=== PATIENT | female | born 1985 | race Caucasian/White ===

== ENCOUNTER 2020-08-19 13:48 | Emergency (ER) | payer OTHER ==
[~2020-08-19] VITALS: Ht 149.9 cm; Wt 90.7 kg
[~2020-08-19 13:48] MED LIST: ALBU90OI6 INH; AMOX500 PO; AZIT250 PO; Amoxicillin500 MG PO; CIPR250 PO; Cleocin HCl300 MG PO; DEXT30SU PO; FLUT.05NI; GABA300 PO; GUAI120S1 PO; HYDACE5 PO; HYDR1TAB94 PO; IBUP600 PO; LEVFLO500 PO; LIDO2L MM; MEDR150I; NAPR500 PO; NAPR550 PO; Naprosyn500 MG PO; OXYACE5T PO; PENVK500 PO; PHENA200 PO; PRED20 PO; PROM25 PO; PSEU120ER PO; RXTRAM50 PO; SULTRIDS PO; TRAM50 PO
[2020-08-19 14:14] LABS: Source, Urine Clean Catch
[2020-08-19] MEDS ORDERED: CEPH500 PO (14:17)
[2020-08-19 14:19] LABS: Appearance, Urine Cloudy (Clear); Bilirubin, Urine Neg (Neg); Blood, Urine 2+ (Neg); Color, Urine Yellow (P-Yellow); Glucose Qualitative, Urine Neg (Neg); Ketones, Urine Neg (Neg); Leukocyte Esterase, Urine 2+ (Neg); Nitrite, Urine Pos (Neg); Protein, Urine 2+ (Neg); Urobilinogen, Urine NORM (Normal)
[2020-08-19 14:29] LABS: White Blood Cells, Urine 25-50 /hpf (0-5)
[2020-08-19 14:30] LABS: Bacteria Many /hpf; Squamous Epithelial Cells Mod /hpf (Few)
[2020-08-19] MEDS ORDERED: IBU600 M1 PO (14:44)
[2020-08-19] MEDS ORDERED: CYCL10 PO (14:44)
== END 2020-08-19 14:58 | disposition home or self-care (01) ==
LOC: ER 13:48
PROVIDERS: Physician Assistant
DX: N39.0 Urinary tract infection, site not specified (principal); F17.210 Nicotine dependence, cigarettes, uncomplicated; Z91.040 Latex allergy status
CPT/HCPCS: 81001; 87077; 87086; 87186; 96372; 99283-25; A9270; J1885

== ENCOUNTER → 2021-02-11 | Outpatient (CLI) | payer OTHER ==
[~2021-02-11] MED LIST changes: +CEPH500 PO; +CYCL10 PO; +IBU600 M1 PO
[2021-02-11 13:48] LABS: Hematocrit 42.1 % (33.0-51.0); Hemoglobin 13.6 g/dL (11.5-16.0); Mean Corpuscular HGB 29.4 pg (26.0-34.0); Mean Corpuscular HGB Conc 32.3 g/dL (31.5-36.5); Mean Corpuscular Volume 91 fL (80-100); Mean Platelet Volume 10.9 fL (9.1-12.4); Platelet Count 290 K/mm3 (150-400); RDW Coefficient Variation 13.7 % (11.7-14.2); RDW Standard Deviation 46.2 fL (35.1-46.3); Red Blood Cell Count 4.62 M/mm3 (3.80-5.20); White Blood Cell Count 10.51 K/mm3 (4.00-11.30)
[2021-02-11 14:07] LABS: Alanine Aminotransfer (ALT/SGP 28 U/L (12-78); Albumin, Blood 3.5 g/dL (3.4-5.0); Alk Phos 75 U/L (50-136); Anion Gap 6 mmol/L (6-16); Aspartate Aminotrans (AST/SGOT 14 U/L (12-37); Bilirubin, Total 0.2 mg/dL (0.1-1.0); Blood Urea Nitrogen 9 mg/dL (8-24); Bun/Creatinine Ratio 12.4 (12.0-20.0); CO2, Blood 25 mmol/L (21-32); Calcium, Blood 8.7 mg/dL (8.5-10.1); Chloride, Blood 109 mmol/L (98-108); Creatinine, Blood 0.73 mg/dL (0.40-1.00); Globulin, Blood 3.4 g/dL (2.2-4.0); Glomerular Filtration Rate >60 (60-); Glucose, Blood 88 mg/dL (70-99); Potassium, Blood 4.2 mmol/L (3.5-5.5); Sodium, Blood 140 mmol/L (136-145); Total Protein, Blood 6.9 g/dL (6.4-8.2)
[2021-02-11 14:52] LABS: BASOPHILS PERCENT MAN 0 % (0-2); EOSINOPHILS ABSOLUTE MAN 0.42 K/mm3 (0.00-0.68); EOSINOPHILS PERCENT MAN 4 % (0-6); LYMPHOCYTES ABSOLUTE MAN 4.62 K/mm3 (0.84-5.20); LYMPHOCYTES PERCENT MAN 44 % (21-46); MONOCYTES ABSOLUTE MAN 0.21 K/mm3 (0.16-1.47); MONOCYTES PERCENT MAN 2 % (4-13); NEUTROPHILS ABSOLUTE MAN 5.25 K/mm3 (1.96-9.15); SEG NEUTROPHILS PERCENT MAN 50 % (41-73); TOTAL CELLS COUNTED 100
== END | disposition home or self-care (01) ==
LOC: LAB SHORT 11:14 → LAB 11:14
PROVIDERS: Physician Assistant
DX: R19.7 Diarrhea, unspecified (principal)
CPT/HCPCS: 80053; 85025